=== PATIENT | female | born 2000 | race Caucasian/White ===

== ENCOUNTER 2025-02-07 09:17 | Outpatient (OUT) | payer OTHER, SELFPAY ==
--- OUTSIDE RECORDS SUMMARY | 2025-02-06 10:10 | XMS_ITS | Encounter Summary ---
Author Organization [facility] Address [address] [place] [address] Care Team Providers Care Programmer Operator Numerical Control Name Role Phone Unavailable Primary Care Provider Unavailabl e Reason for Visit * Reason Comments Thyroid Problem ABNORMAL WEIGHT LOSS NEW REF ONLY * Other Medical (Routine) - Closed Specialty Diagnoses / Procedures Referred By Carmen alejandro Referred To Contact Endocrinology Diagnoses Abnormal weight loss Procedures IA OFFICE/OUTPATIENT NEW MODERATE MDM 45 MINUTES Love De DO [address] [place] [address] Phone: tel: fax: Wanda Macario MD [address] [place] [address] Phone: tel: fax: Referral ID Status Reason Start Date Expiration Date Visits Re quested Visits Authorized [id number] Closed 01/21/2025 07/20/2025 1 1 Encounter Details Date Type Department Care Team (Late st Contact Info) Description 02/06/2025 10:10 AM EDT Office Visit [facility] [address] [place] [address] Wanda Macario MD [address] [place] [address] Weight loss (Primary Dx); Dizziness; Palpitation Social History Tobacco Use Types Packs/Day Years Used Date Smoking Tobacco: Never Assessed Comments Unknown Sex and Gender Information Value Date Recorded Sex Assigned at Not on file Legal Sex Female 7:33 PM EDT Gender Identity Not on file Sexual Orientation Not on file documented as of this encounter Last Filed Vital Signs Vital Sign Reading Time Taken Comments Blood Pressure 120/80 02/06/2025 10:22 AM EDT Pulse 103 02/06/2025 10:22 AM EDT Temperature - - Respiratory Rate 20 02/06/2025 10:22 AM EDT Oxygen Saturation 97% 02/06/2025 10:22 AM EDT Inhaled Oxygen Concentration - - Weight 50.3 kg (111 lb) 02/06/2025 10:22 AM EDT Height 157.5 cm (5' 2 ) 02/06/2025 10:22 AM EDT Body Mass Index 20.3 02/06/2025 10:22 AM EDT documented in this encounter Progress Notes * Wanda Macario MD - 02/06/2025 10:10 AM EDT Nain Morris is a 24 y.o. female Love De DO presents with chief complaint of Thyroid Problem (ABNORMAL WEIGHT LOSS NEW REF ONLY) HPI: History of Present Illness The patient is a 24-year-old female who presents as a new patient referred by Dr. Love De, forevaluation of abnormal weight loss. A year ago, she weighed 170 pounds, with her lowest recorded weight being 107 pounds. Currently, she weighs around 111 pounds. She has mild palpitations and dizziness when trying to stand up. She is currently on Protonix and control. She reports no family history of thyroid disease. Her last TSH lab done in 12/2023 was within normal limits at 0.67. She recalls being on steroid treatment a long time ago but not recently. An EGD and colonoscopy were performed, both of which showed no acute findings. FAMILY HISTORY She does not report any family history of thyroid disease. SUBJECTIVE: MEDICATIONS: Current Outpatient Medications Medication Instructions omeprazole (PRILOSEC) 10 mg, Oral, Daily before breakfast, Do not crush or chew. ondansetron (Zofran) 4 MG tablet Oral ALLERGIES: Allergies Allergen Reactions Augmentin [Amoxicillin-Pot Clavulanate] Suprax [Cefixime] No past medical history on file. No past surgical history on file. REVIEW OF SYMPTOMS: 14 POINT OF SYSTEM REVIEWED AND NEGATIVE OBJECTIVE: Visit Vitals BP 120/80 Pulse 103 Resp 20 Ht 5' 2 Wt 111 lb SpO2 97% BMI 20.30 kg/m?? BSA 1.48 m?? Physical Exam Constitutional: Appearance: Normal appearance. She is normal weight. HENT: Head: Normocephalic and atraumatic. Right Ear: External ear normal. Nose: Nose normal. Mouth/Throat: Pharynx: Oropharynx is clear. Eyes: Extraocular Movements: Extraocular movements intact. Pupils: Pupils are equal, round, and reactive to light. Cardiovascular: Rate and Rhythm: Normal rate and regular rhythm. Pulmonary: Effort: Pulmonary effort is normal. Abdominal: General: Abdomen is flat. Palpations: Abdomen is soft. Musculoskeletal: General: Normal range of motion. Skin: General: Skin is warm. Neurological: General: No focal deficit present. Mental Status: She is alert. Psychiatric: Mood and Affect: Mood normal. Behavior: Behavior normal. ASSESSMENT AND PLAN: Assessment/Plan Diagnoses and all orders for this visit: Weight loss - Thyrotropin receptor antibody; Future - Thyroid peroxidase antibody; Future - T3, free; Future - T4, free; Future - TSH; Future - Cortisol; Future - ACTH; Future - Growth hormone; Future - Luteinizing hormone; Future - Follicle stimulating hormone; Future - Insulin-like growth factor 1; Future - Prolactin; Future - Basic metabolic panel; Future Dizziness - Thyrotropin receptor antibody; Future - Thyroid peroxidase antibody; Future - T3, free; Future - T4, free; Future - TSH; Future - Cortisol; Future - ACTH; Future - Growth hormone; Future - Luteinizing hormone; Future - Follicle stimulating hormone; Future - Insulin-like growth factor 1; Future - Prolactin; Future - Basic metabolic panel; Future Palpitation - Thyrotropin receptor antibody; Future - Thyroid peroxidase antibody; Future - T3, free; Future - T4, free; Future - TSH; Future - Cortisol; Future - ACTH; Future - Growth hormone; Future - Luteinizing hormone; Future - Follicle stimulating hormone; Future - Insulin-like growth factor 1; Future - Prolactin; Future - Basic metabolic panel; Future Assessment & Plan 1. Abnormal weight loss. - Significant weight loss over the past year, dropping from 170 pounds to 111 pounds. - Mild palpitation and dizziness when trying to stand up. - EGD and colonoscopy performed with no acute findings. - Last TSH lab done in 12/2023 within normal limits, 0.67. - Comprehensive panel of thyroid hormone labs, including antibodies, will be conducted to rule out hyperthyroidism. - Pituitary hormones will be checked to rule out any endocrine issues. - Currently on Protonix and control. - Further recommendations will be made based on the lab results. Follow-up: The patient will follow up in 2 to 3 weeks. PROCEDURE EGD and colonoscopy were performed with no acute findings. Follow up in about 3 weeks (around 02/27/2025). documented in this encounter Plan of Treatment Upcoming Encounters Date Type Department Care Team (Late st Contact Info) Description 03/07/2025 9:10 AM EDT Office Visit [facility] [address] [place] [address] Wanda Macario MD [address] [place] [address] Scheduled Orders Name Type Priority Associated Diagnoses Orde r Schedule Thyrotropin receptor antibody Lab Routine Weight loss Dizziness Palpitation Expected: 02/06/2025 (Approximate), Expires: 02/06/2026 Thyroid peroxidase antibody Lab Routine Weight loss Dizziness Palpitation Expected: 02/06/2025 (Approximate), Expires: 02/06/2026 T3, free Lab Routine Weight loss Dizziness Palpitation Expected: 02/06/2025 (Approximate), Expires: 02/06/2026 T4, free Lab Routine Weight loss Dizziness Palpitation Expected: 02/06/2025 (Approximate), Expires: 02/06/2026 TSH Lab Routine Weight loss Dizziness Palpitation Expected: 02/06/2025 (Approximate), Expires: 02/06/2026 Cortisol Lab Routine Weight loss Dizziness Palpitation Expected: 02/06/2025 (Approximate), Expires: 02/06/2026 ACTH Lab Routine Weight loss Dizziness Palpitation Expected: 02/06/2025 (Approximate), Expires: 02/06/2026 Growth hormone Lab Routine Weight loss Dizziness Palpitation Expected: 02/06/2025 (Approximate), Expires: 02/06/2026 Luteinizing hormone Lab Routine Weight loss Dizziness Palpitation Expected: 02/06/2025 (Approximate), Expires: 02/06/2026 Follicle stimulating hormone Lab Routine Weight loss Dizziness Palpitation Expected: 02/06/2025 (Approximate), Expires: 02/06/2026 Insulin-like growth factor 1 Lab Routine Weight loss Dizziness Palpitation Expected: 02/06/2025 (Approximate), Expires: 02/06/2026 Prolactin Lab Routine Weight loss Dizziness Palpitation Expected: 02/06/2025 (Approximate), Expires: 02/06/2026 Basic metabolic panel Lab Routine Weight loss Dizziness Palpitation Expected: 02/06/2025 (Approximate), Expires: 02/06/2026 documented as of this encounter Visit Diagnoses Diagnosis Weight loss- Primary Loss of weight Dizziness Dizziness and giddiness Palpitation Palpitations documented in this encounter
--- OUTSIDE RECORDS SUMMARY | 2025-02-07 09:25 | XMS_ITS | Encounter Summary ---
Author Organization [facility] Address [address] [place] [address] Phone Care Team Providers Care Optical Goods Worker Name Role Phone Marta Malik MD Primary Care Provider Encounter Details Date Type Department Care Team (Late st Contact Info) Description 05/01/2020 Orders Only [facility] [address] [place] [address] Conversion, Onbase Social History Tobacco Use Types Packs/Day Years Used Date Smoking Tobacco: Never Assessed Comments Unknown Sex and Gender Information Value Date Recorded Sex Assigned at Not on file Legal Sex Female 4:17 PM EST Gender Identity Not on file Sexual Orientation Not on file documented as of this encounter Plan of Treatment Scheduled Orders Name Type Priority Associated Diagnoses Orde r Schedule OUTSIDE LAB SCAN Lab Ordered: 05/01/2020 documented as of this encounter Visit Diagnoses Not on filedocumented in this encounter Care Teams Optical Goods Worker Relationship Specialty Start Date End Date Marta Malik MD [address] [facility] [place] [address] PCP - General 07/13/17 documented as of this encounter
--- OUTSIDE RECORDS SUMMARY | 2025-02-07 09:25 | XMS_ITS | Clinical Summary ---
Author Organization [facility] Address [address] [place] [address] Care Team Providers Care Director Acute Name Role Phone Unavailable Primary Care Provider Unavailabl e Allergies Active Allergy Reactions Criticality Noted Date Comments Amoxicillin-Pot Clavulanate 02/07/20 25 Cefixime 02/06/2025 Medications omeprazole (PriLOSEC) [address] capsule Take 10 mg by mouth in the morning. Take before meals. Do not crush or chew. Active ondansetron (Zofran) 4 MG tablet Take by mouth Active Encounters Date Type Department Care Team Description 02/06/2025 10:10 AM EDT Office Visit [facility] [address] [place] [address] Wanda Macario MD Weight loss (Primary Dx); Dizziness; Palpitation 02/06/2025 Bamboo flowsheet [facility] [address] [place] [address] Wanda Macario MD from Last 3 Months Social History Tobacco Use Types Packs/Day Years Used Date Smoking Tobacco: Never Assessed Comments Unknown Sex and Gender Information Value Date Recorded Sex Assigned at Not on file Legal Sex Female 7:33 PM EDT Gender Identity Not on file Sexual Orientation Not on file Last Filed Vital Signs Vital Sign Reading [...] Mass Index 20.3 02/06/2025 10:22 AM EDT Plan of Treatment Upcoming Encounters Date Type Department Care Team (Late st Contact Info) Description 03/07/2025 9:10 AM EDT Office Visit [facility] [address] [place] [address] Wanda Macario MD [address] [place] [address] Health Maintenance Due Date Last Done Comments Influenza Vaccine (#1) 2025 05/16/2012, 2010, 03/21/2009
--- OUTSIDE RECORDS SUMMARY | 2025-02-07 09:25 | XMS_ITS | Encounter Summary ---
Author Organization [facility] Address [address] [place] [address] Phone Care Team Providers Care Plastics Production Machine Operator Name Role Phone Marta Malik MD Primary Care Provider [phone] Encounter Details Date Type Department Care Team (Late st Contact Info) Description 01/17/2018 Orders Only [facility] [address] [place] [address] Conversion, Onbase Social History Tobacco Use Types [...] r Schedule OUTSIDE LAB SCAN Lab Ordered: 01/17/2018 OUTSIDE LAB SCAN Lab Ordered: 01/17/2018 documented as of this encounter Visit Diagnoses Not on filedocumented in this encounter Care Teams Plastics Production Machine Operator Relationship Specialty Start Date End Date Marta Malik MD [address] [place] [address] PCP - General 07/13/17 documented as of this encounter
--- OUTSIDE RECORDS SUMMARY | 2025-02-07 09:25 | XMS_ITS | Patient Health Record ---
Author Organization [facility] Address [address] [address] Care Team Providers Care Hand Marker Name Role Phone arabellaAriadnaKaushal wiseman Primary Care Provider Unav ailable Amelia Santos Unavailable [phone] Allergies Allergen (clinical drug ingredient) Drug/Non Drug Allergy documented on EMR Reaction Allergy Type Onset Date Status amoxicillin / clavulanate Augmentin U/K Drug Allergy Active Suprax U/K Drug Allergy Active Reason For Referral No Information Medications Medication SIG (Take, Route, Frequency, Duration) Notes Start Date End Date Status Ondansetron 4 MG 1 tablet on the tong ue and allow to dissolve Orally Once a day as needed Zofran Active Omeprazole 20 MG 1 capsule 30 min bef ore am/pm meals Orally twice a day; Duration: 30 days Active Escitalopram Oxalate 20 MG 1 tablet Oral ly Once a day Active control pill A ctive Venlafaxine HCl 25 MG 1 tablet with food Orally Twice a day Active Social History Tobacco Use: Social History Observation Description Date Details (start date - stop date) Never Smoker NA - NA Old Tobacco Use/Smoking Question Answer Notes Are you a nonsmoker Old Alcohol Screen Question Answer Notes Did you have a drink containing alcohol in the p ast year? No Points 0 Interpretation Negative Problems Problem Type SNOMED Code ICD Code Onset Dates Problem Status W/U Status Risk Notes Problem Change in bowel habit (85648027) Change in bowel habit (R19.4) Active confirmed Problem Change in bowel habit (87117633) Change in bowel habits (R19.4) Active confirmed Problem Flatulence, eructation and gas pain (801230559) Bloating (R14.0) Active confirmed ca n be worse with eating - r/o IBD, IBS, other. Recent negative biopsies for Celiac and H. pylori. Problem Weight loss (766309877) Weight loss (R63.4) Active confirmed Problem Upper abdominal pain (71645113) Upper abdominal pain (R10.10) Active confirmed Problem Loose stools (988180661) Loose stools (R19.5) Active confirmed Problem Gastroesophageal reflux disease (599022698) Gastroesophageal reflux disease, unspecified whether esophagitis present (K21.9) Active confirmed long history of symptoms, well controlled on daily PPI Problem Nausea and vomiting (80505605) Nausea and vomiting, unspecified vomiting type (R11.2) Active confirmed abrupt onset 01/2022, no clear triggering event. Has associated upper abdominal pain, bloating, and previous 45 lb weight loss. Outside labs with normal CBC, LFTs, TSH, negative tTG (on gluten free diet). r/ biliary cause, gastropares is, other. Denies current cannabis use. Plan Of Treatment Pending Test Test Name Order Date EGD - ESOPHOGASTRODUODENOSCOPY 2 Future Test Test Name Order Date Ultrasound : Abdomen complete 07/19/2022 COLONOSCOPY 07/19/2022 Insurance Providers Payer Name Payer Address Payer Phone Subscriber Number Group Number Insured Name Patient Relationship to Insured Coverage Start Date Coverage End Date [facility] [address] [address] [place] [address] [id number] Nain Morris Self - patient is the insured 2 Medical (General) History Medical History History ICD Code asthma anxiety GERD Surgical History Surgery Date(Month/Year) ankle surgery foot surgery appendectomy Hospitalization History Reason Date(Month/Year) see surgeries.
--- OUTSIDE RECORDS SUMMARY | 2025-02-07 09:25 | XMS_ITS | Clinical Summary ---
Author Organization [facility] Address [address] [place] [address] Phone Care Team Providers Care Jingle Writer Name Role Phone Marta Malik MD Primary Care Provider Social History Tobacco Use Types Packs/Day Years Used Date Smoking Tobacco: Never Assessed Comments Unknown Sex and Gender Information Value Date Recorded Sex Assigned at Not on file Legal Sex Female 4:17 PM EST Gender Identity Not on file Sexual Orientation Not on file Last Filed Vital Signs Vital Sign Reading Time Taken Comments Blood Pressure 128/78 02/10/2021 4:16 PM EDT Pulse 86 02/10/2021 4:16 PM EDT Temperature 36.8 C (98.2 F) 10/10/2020 10:20 AM EDT Respiratory Rate - - Oxygen Saturation 98% 02/10/2021 4:16 PM EDT Inhaled Oxygen Concentration - - Weight 70.4 kg (155 lb 4 oz) 02/10/2021 4:16 PM EDT Height 155.6 cm (5' 1.25 ) 02/10/2021 4:16 PM ED T Body Mass Index 29.1 02/10/2021 4:16 PM EDT Plan of Treatment Not on file Care Teams Jingle Writer Relationship Specialty Start Date End Date Marta Malik MD [address] [facility] [place] [address] PCP - General 07/13/17
--- OUTSIDE RECORDS SUMMARY | 2025-02-07 09:25 | XMS_ITS | Encounter Summary ---
Author Organization [facility] Address [address] [place] [address] Care Team Providers Care Roving Can Tender Name Role Phone Unavailable Primary Care Provider Unavailabl e Encounter Details Date Type Department Care Team (Late st Contact Info) Description 02/06/2025 Bamboo flowsheet [facility] [address] [place] [address] Wanda Macario MD [address] [place] [address] Social History Tobacco Use Types Packs/Day Years Used Date Smoking Tobacco: Never Assessed Comments Unknown Sex and Gender Information Value Date Recorded Sex Assigned at Not on file Legal Sex Female 7:33 PM EDT Gender Identity Not on file Sexual Orientation Not on file documented as of this encounter Plan of Treatment Upcoming Encounters Date Type Department Care Team (Late st Contact Info) Description 03/07/2025 9:10 AM EDT Office Visit [facility] [address] [place] [address] Wanda Macario MD [address] [place] [address] documented as of this encounter Visit Diagnoses Not on filedocumented in this encounter
--- OUTSIDE RECORDS SUMMARY | 2025-02-07 09:25 | XMS_ITS | Clinical Summary ---
Author Organization [employer] [facility] tem Address [id number] [place] [address] Care Team Providers Care Mix Crusher Operator Name Role Phone Marta Malik MD Primary Care Provider [phone] Allergies Active Allergy Reactions Criticality Noted Date Comments Amoxicillin-Pot Clavulanate Hives 07/27/19 18 Cefixime Hives 07/27/2017 Medications * This document contains information received from the source organization and may not represent a complete record from that organization. beclomethasone (QVAR) 80 mcg/actuation inhaler Inhale 1 puff daily. Active meclofenamate (MECLOMEN) 100 MG capsule Take 100 mg by mouth daily as needed for pain. Active pantoprazole (PROTONIX) 40 mg EC tablet Take 1 tablet (40 mg total) by mouth daily. 30 tablet 3 07/27/2017 Active sucralfate (CARAFATE) 1 gram tablet Take 1 tablet (1 g total) by mouth 4 (four) times a day. 120 tablet 3 07/27/2017 Active hyoscyamine (LEVSIN/SL) 0.125 mg SL tablet Take 1 tablet (125 mcg total) by mouth every 4 (four) hours as needed for cramping. 60 tablet 3 07/27/2017 Active Active Problems Problem Noted Date Diagnosed Date Abdominal pain, chronic, epigastric 07/27/2017 Chronic nausea 07/27/2017 Biliary sludge 07/27/2017 Family History Medical History Relation Name Comments Anesthesia problems Father trouble waking up and N/V Asthma Mother Relation Name Status Comments Father Alive Mother Alive Social History Tobacco Use Types Packs/Day Years Used Date Smoking Tobacco: Never Smokeless Tobacco: Never Comments:no passive smoke Alcohol Use Standard Drinks/Week Comments No 0 (1 standard drink = 0.6 oz pur e alcohol) Childcare Answer Date Recorded Childcare Unknown 12/19/2018 Employment Answer Date Recorded Employment Unknown 12/19/2018 Purpose - Life Answer Date Recorded Purpose and direction in life Unknown Comments No Sex and Gender Information Value Date Recorded Sex Assigned at Not on file Legal Sex Female 4:52 PM EDT Gender Identity Not on file Sexual Orientation Not on file Last Filed Vital Signs Vital Sign Reading Time Taken Comments Blood Pressure 92/55 09/15/2017 8:25 AM EST Pulse 56 09/15/2017 9:00 AM EST Temperature 36 C (96.8 F) 09/15/2017 9:00 AM EST Respiratory Rate 12 09/15/2017 9:00 AM EST Oxygen Saturation 99% 09/15/2017 9:00 AM EST Inhaled Oxygen Concentration - - Weight 56.2 kg (123 lb 14.4 oz) 09/15/2017 7:05 AM EST Height 154.7 cm (5' 0.9 ) 08/25/2017 9:10 AM EST Body Mass Index - - Plan of Treatment Health Maintenance Due Date Last Done Comments Depression Screening 2014 Tobacco Screening 2014 Adult BMI Screening 2020 DTaP,Tdap and Td Vaccines (1 - Tdap) 2021 Pap Smear 2023 Influenza Vaccine 03/11/2025 Medical Devices Not on file Insurance [address] [place] [id number] [facility] Care Teams Mix Crusher Operator Relationship Specialty Start Date End Date Marta Malik MD PCP - General Pediatrics 07/18/17
--- OUTSIDE RECORDS SUMMARY | 2025-02-07 09:25 | XMS_ITS | Encounter Summary ---
Author Organization [facility] Address [address] [place] [address] Phone Care Team Providers Care Litigation Associate Name Role Phone Marta Malik MD Primary Care Provider [phone] Encounter Details Date Type Department Care Team (Late st Contact Info) Description 09/02/2020 Orders Only [facility] [address] [place] [address] Conversion, Onbase Social History Tobacco Use Types [...] r Schedule OUTSIDE LAB SCAN Lab Ordered: 09/02/2020 OUTSIDE LAB SCAN Lab Ordered: 09/02/2020 documented as of this encounter Visit Diagnoses Not on filedocumented in this encounter Care Teams Litigation Associate Relationship Specialty Start Date End Date Marta Malik MD [address] [place] [address] PCP - General 07/13/17 documented as of this encounter
[2025-02-07 10:42] LABS: Anion Gap 11.0; Blood Urea Nitrogen 14.0 mg/dL (7.0-18.0); Calcium 8.8 mg/dL (8.5-10.1); Carbon Dioxide 28.8 mmol/L (21.0-32.0); Chloride 104 mmol/L (98-107); Estimated GFR (African America >60 (>=60 mL/min/1.73m^2); Estimated GFR (Non-African Ame >60 (>=60 mL/min/1.73m^2); Free T3 2.43 pg/mL (2.18-3.98); Glucose 84 mg/dL (74-106); Potassium 3.8 mmol/L (3.5-5.1); Sodium 140 mmol/L (136-145); Thyroid Stimulating Hormone 1.539 uIU/mL (0.358-3.740)
[2025-02-08 04:07] LABS: FSH 6.3 mIU/mL (.)
[2025-02-11 06:08] LABS: Thyrotropin Receptor Ab, Serum <1.10 IU/L (0.00-1.75)
[2025-02-13 08:09] LABS: IGF-1 236 ng/mL (101-347)
== END 2025-02-07 09:18 | disposition home or self-care (01) ==
LOC: LAB 09:23
PROVIDERS: PCP Family Medicine; Visit Provider Internal Medicine
DX: R63.4 Abnormal weight loss (principal); R42 Dizziness and giddiness; R00.2 Palpitations
CPT/HCPCS: 36415; 80048; 82024; 82533; 83001; 83002; 83003; 83520; 84146; 84305; 84439; 84443; 84481; 86376